=== PATIENT | male | born 1960 | race Caucasian/White ===

== ENCOUNTER 2018-09-08 12:20 | Emergency (ER) | payer OTHER ==
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
[2018-09-08] MEDS ORDERED: Sodium Chloride 0.9% 1,000 ML IV SCH ×2 (13:00→14:15)
[2018-09-08] MEDS ORDERED: Insulin Regular, Human 100 Units/ML 3 ML Vial SUBCUT ONE (13:22)
[2018-09-08] MEDS ORDERED: Magnesium Citrate Solution 296 ML Bottle PO ONE (13:36)
--- NOTE | 2018-09-08 13:51 | CR ---
Abdomen: Supine view of the abdomen was obtained. Comparison: No prior abdominal imaging. Calcifications seen within the pelvis compatible with phleboliths. Multiple surgical clips seen within the abdomen. Bowel gas pattern is normal. No soft tissue abnormality is seen. Anastomotic sutures are noted within the pelvis most likely from rectal surgery. Impression: 1. Findings as noted above. Nothing acute is appreciated on supine abdominal x-ray. Diagnostic code #2
[2018-09-08 13:56] LABS: HEMOGLOBIN A1C 9.4 % (4.50-6.20)
== END 2018-09-08 16:44 | disposition home or self-care (01) ==
LOC: JD.ED 12:20
DX: K59.01 Slow transit constipation (principal); E86.0 Dehydration; E11.65 Type 2 diabetes mellitus with hyperglycemia; Z79.899 Other long term (current) drug therapy; Z79.4 Long term (current) use of insulin
CPT/HCPCS: 36415; 74018; 80053; 81001; 82009; 82962; 83036; 83735; 83930; 85007; 85027; 96360; 96361; 96372; 99284; A9270; J1815; J7040

== ENCOUNTER 2018-09-11 09:27 | Emergency (ER) | payer OTHER ==
[2018-09-11] MEDS ORDERED: Sodium Chloride 0.9% 10 ML Syringe FLUSH PRN (09:50)
[2018-09-11] MEDS ORDERED: Ibuprofen 800 MG Tab PO ONE (09:59)
[2018-09-11] MEDS: Sodium Chloride 0.9% 1,000 ML IV SCH ×2 (10:06→12:45)
--- NOTE | 2018-09-11 10:32 | EDM.PDOC ---
ED HPI GENERAL MEDICAL PROBLEM - General Chief Complaint: Gastrointestinal Problem Stated Complaint: NWWDS FLUIDS Time Seen by Provider: 09/11/18 09:34 Source of Information: Reports: Patient, Family History Limitations: Reports: No Limitations - History of Present Illness INITIAL COMMENTS - FREE TEXT/NARRATIVE: 57 y/o male presents to ER with cc rectal pain, fever and a headache. He states he developed fever this morning 101.7 and his rectal pain has increased over the past 2 days. He reports the pain is a stabbing pain in the left rectum region. 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 He reports he had a hard B M yesterday that was small. He states he feels like he is dehydrated and needs fluid. He is type II diabetic. He states his sugars have been running in the high 200's. S/O reports he was upset and hurting last night and went to the bar and drank quit a bit. He states he has a non-productive cough that is getting worse. He states he "recently aspirated in the past month. " He has not taken anything for his fever or pain. He reports pain eases up when he lays on his side. He is accompanied by his significant other. [facility]. Onset: Today Onset Date: 09/11/18 Onset Time: 07:00 Duration: Getting Worse Location: Reports: Abdomen, Other (rectal area) Quality: Reports: Ache Severity: Mild Improves with: Reports: None Worsens with: Reports: Movement (bowel movement) Associated Symptoms: Reports: Cough, Fever/Chills, Headaches. Denies: Nausea/ Vomiting, Shortness of Breath Rectal Pain Score (Numeric/FACES): 6 - Related Data Allergies Allergy/AdvReac Type Severity Reaction Status Date / Time No Known Allergies Allergy Verified 09/11/18 09:38 Home Meds: Home Meds Amylase/Lipase/Protease [Mindy SEAMAN 24,000 Unit] 24,000 unit PO TID 09/08/18 [ History] Benzonatate 100 mg PO TID PRN 09/08/18 [History] Insulin Glarg,Human.Rec.Analog [Lantus Solostar] 300 units .XX DAILY #1 pen 06/28 [Rx] Insulin Glarg,Human.Rec.Analog [Lantus] 15 units SQ QAM 09/08/18 [History] Lisinopril/Hydrochlorothiazide [Lisinopril-HCTZ 10-12.5 MG] 1 tab PO DAILY 09/08 [History] Magnesium Oxide 420 mg PO BID 09/08/18 [History] Meloxicam 15 mg PO DAILY PRN 09/08/18 [History] Mesalamine [Canasa] 1,000 mg RECTAL BEDTIME 09/08/18 [History] Omeprazole 20 mg PO DAILY PRN 09/08/18 [History] Sildenafil Citrate [Sildenafil] 100 mg PO ONETIME PRN 09/08/18 [History] glipiZIDE [Glucotrol XL] 10 mg PO BID 09/08/18 [History] metFORMIN HCl [Metformin HCl] 750 mg PO DAILY 09/08/18 [History] Ciprofloxacin HCl [Cipro] 500 mg PO BID 7 Days #14 tablet 09/11/18 [Rx] metroNIDAZOLE [Flagyl] 500 mg PO Q8H 7 Days #21 tab 09/11/18 [Rx] Past Medical History Respiratory History: Reports: Pneumonia, Recurrent Gastrointestinal History: Reports: Other (See Below) Other Gastrointestinal History: ulcerative colitis Musculoskeletal History: Reports: Osteoarthritis Neurological History: Reports: Concussion Endocrine/Metabolic History: Reports: Diabetes, Type II - Past Surgical History HEENT Surgical History: Reports: Naso-Sinus Surgery, Oral Surgery Social & Family History - Tobacco Use Smoking Status *Q: Never Smoker - Caffeine Use Caffeine Use: Reports: Coffee - Alcohol Use Days Per Week of Alcohol Use: 3 Number of Drinks Per Day: 4 Total Drinks Per Week: 12 - Recreational Drug Use Recreational Drug Use: No - Living Situation & Occupation Living situation: Reports: Single Occupation: Employed ED ROS GENERAL - Review of Systems Review Of Systems: See Below Constitutional: Reports: Fever, Chills HEENT: Reports: No Symptoms Respiratory: Reports: Cough. Denies: Shortness of Breath Cardiovascular: Denies: Chest Pain Endocrine: Reports: Fatigue GI/Abdominal: Reports: Abdominal Pain, Constipation, Other (rectal pain) : Reports: No Symptoms Musculoskeletal: Reports: No Symptoms Skin: Reports: No Symptoms Neurological: Reports: Headache Psychiatric: Reports: Anxiety Hematologic/Lymphatic: Reports: No Symptoms Immunologic: Reports: No Symptoms ED EXAM, GI/ABD - Physical Exam Exam: See Below Exam Limited By: No Limitations General Appearance: Alert, WD/WN, No Apparent Distress Nose: Normal Inspection, Normal Mucosa, Other (oral mucosa dry, lips dry) Throat/Mouth: Normal Teeth, Normal Oropharynx, Normal Voice, No Airway Compromise, Other Head: Atraumatic, Normocephalic Neck: Normal Inspection, Supple, Non-Tender, Full Range of Motion Respiratory/Chest: No Respiratory Distress, No Accessory Muscle Use, Chest Non- Tender, Decreased Breath Sounds Cardiovascular: Normal Peripheral Pulses, No Edema, No Gallop, No JVD, No Murmur , No Rub, Tachycardia GI/Abdominal Exam: Soft, Non-Tender, No Organomegaly, No Distention, No Abnormal Bruit, No Mass, Pelvis Stable, Other (bowel sounds hyperactive) Back Exam: Normal Inspection, Full Range of Motion Neurological: Alert, Oriented, Normal Cognition, Normal Gait Psychiatric: Normal Affect, Normal Mood Skin Exam: Warm, Dry, Intact, Normal Color, No Rash Lymphatic: No Adenopathy Course - Vital Signs Last Recorded V/S: Last Vital Signs Temp 102 F H 09/11/18 10:06 Pulse 132 H 09/11/18 09:35 Resp 18 09/11/18 09:35 BP 155/86 H 09/11/18 09:35 Pulse Ox 94 L 09/11/18 09:35 - Orders/Labs/Meds Orders: Active Orders 24 hr Category Date Time Status Abdomen Pelvis w Cont [CT] Stat Exams 09/11/18 11:19 Taken Chest 2V [CR] Stat Exams 09/11/18 09:58 Taken KUB [Abdomen 1V Flat] [CR] Stat Exams 09/11/18 09:53 Taken CULTURE BLOOD [BC] Stat Lab 09/11/18 10:02 Received CULTURE BLOOD [BC] Stat Lab 09/11/18 10:19 Received Levofloxacin/Dextrose 5%-Water [Levaquin in D5W 750 MG/ Med 09/11/18 12:37 Active 150 ML] 750 mg Premix Bag 1 bag IV ONETIME Sodium Chloride 0.9% [Normal Saline] 1,000 ml Med 09/11/18 10:00 Active IV ASDIRECTED Sodium Chloride 0.9% [Normal Saline] 1,000 ml Med 09/11/18 12:45 Active IV ASDIRECTED Sodium Chloride 0.9% [Saline Flush] Med 09/11/18 09:50 Active 10 ml FLUSH ASDIRECTED PRN Blood Culture x2 Reflex Set [OM.PC] Stat Oth 09/11/18 09:59 Ordered Saline Lock Insert [OM.PC] Routine Oth 09/11/18 09:50 Ordered Medication Orders Sodium Chloride (Normal Saline) 1,000 mls @ 999 mls/hr IV ASDIRECTED DENICE Last Admin: 09/11/18 12:45 Dose: 999 mls/hr Infusion: 09/11/18 11:07 Dose: 999 mls/hr Admin: 09/11/18 10:06 Dose: 999 mls/hr Sodium Chloride (Normal Saline) 1,000 mls @ 125 mls/hr IV ASDIRECTED DENICE Levofloxacin/Dextrose 750 mg/ (Premix) 150 mls @ 100 mls/hr IV ONETIME ONE Stop: 09/11/18 14:06 Sodium Chloride (Saline Flush) 10 ml FLUSH ASDIRECTED PRN PRN Reason: Keep Vein Open Last Admin: 09/11/18 10:06 Dose: 10 ml Labs: Laboratory Tests 09/11/18 09/11/18 09/11/18 Range/Units 10:02 10:02 10:02 WBC 11.69 H (4.23-9.07) K/mm3 RBC 5.48 (4.63-6.08) M/mm3 Hgb 16.4 (13.7-17.5) gm/L Hct 45.5 (40.1-51.0) % MCV 83.0 (79.0-92.2) fl MCH 29.9 (25.7-32.2) pg MCHC 36.0 H (32.2-35.5) g/dl RDW Std Deviation 36.3 (35.1-43.9) fL Plt Count 199 (163-337) K/mm3 MPV 10.0 (9.4-12.3) fl Neut % (Auto) 93.3 H (34.0-67.9) % Lymph % (Auto) 2.3 L (21.8-53.1) % Mckenzie % (Auto) 3.4 L (5.3-12.2) % Eos % (Auto) 0.5 L (0.8-7.0) Baso % (Auto) 0.2 (0.1-1.2) % Neut # (Auto) 10.90 H (1.78-5.38) K/mm3 Lymph # (Auto) 0.27 L (1.32-3.57) K/mm3 Mckenzie # (Auto) 0.40 (0.30-0.82) K/mm3 Eos # (Auto) 0.06 (0.04-0.54) K/mm3 Baso # (Auto) 0.02 (0.01-0.08) K/mm3 Manual Slide Review Normal smear Sodium 134 L (136-145) mEq/L Potassium 4.0 (3.5-5.1) mEq/L Chloride 98 (98-107) mEq/L Carbon Dioxide 23 (21-32) mEq/L Anion Gap 17.0 H (5-15) BUN 21 H D (7-18) mg/dL Creatinine 1.2 (0.7-1.3) mg/dL Est Cr Clr Drug Dosing 73.65 mL/min Estimated GFR (MDRD) > 60 (>60) mL/min BUN/Creatinine Ratio 17.5 (14-18) Glucose 228 H (74-106) mg/dL POC Glucose (70-105) mg/dL Lactic Acid (0.4-2.0) mmol/L Calcium 9.3 (8.5-10.1) mg/dL Total Bilirubin 2.1 H (0.2-1.0) mg/dL AST 81 H (15-37) U/L ALT 114 H (16-63) U/L Alkaline Phosphatase 205 H (46-116) U/L Total Protein 7.0 (6.4-8.2) g/dl Albumin 3.4 (3.4-5.0) g/dl Globulin 3.6 gm/dL Albumin/Globulin Ratio 0.9 L (1-2) Lipase 261 (73-393) U/L Urine Color (Yellow) Urine Appearance (Clear) Urine pH (5.0-8.0) Ur Specific [place] (1.005-1.030) Urine Protein (Negative) Urine Glucose (UA) (Negative) Urine Ketones (Negative) Urine Occult Blood (Negative) Urine Nitrite (Negative) Urine Bilirubin (Negative) Urine Urobilinogen (0.2-1.0) Ur Leukocyte Esterase (Negative) Urine RBC (0-5) /hpf Urine WBC (0-5) /hpf Ur Squamous Epith Cells (0-5) /hpf Urine Bacteria (FEW) /hpf Urine Mucus (FEW) /hpf 09/11/18 09/11/18 09/11/18 Range/Units 10:09 10:19 11:30 WBC (4.23-9.07) K/mm3 RBC (4.63-6.08) M/mm3 Hgb (13.7-17.5) gm/L Hct (40.1-51.0) % MCV (79.0-92.2) fl MCH (25.7-32.2) pg MCHC (32.2-35.5) g/dl RDW Std Deviation (35.1-43.9) fL Plt Count (163-337) K/mm3 MPV (9.4-12.3) fl Neut % (Auto) (34.0-67.9) % Lymph % (Auto) (21.8-53.1) % Mckenzie % (Auto) (5.3-12.2) % Eos % (Auto) (0.8-7.0) Baso % (Auto) (0.1-1.2) % Neut # (Auto) (1.78-5.38) K/mm3 Lymph # (Auto) (1.32-3.57) K/mm3 Mckenzie # (Auto) (0.30-0.82) K/mm3 Eos # (Auto) (0.04-0.54) K/mm3 Baso # (Auto) (0.01-0.08) K/mm3 Manual Slide Review Sodium (136-145) mEq/L Potassium (3.5-5.1) mEq/L Chloride (98-107) mEq/L Carbon Dioxide (21-32) mEq/L Anion Gap (5-15) BUN (7-18) mg/dL Creatinine (0.7-1.3) mg/dL Est Cr Clr Drug Dosing mL/min Estimated GFR (MDRD) (>60) mL/min BUN/Creatinine Ratio (14-18) Glucose (74-106) mg/dL POC Glucose 214 H (70-105) mg/dL Lactic Acid 1.3 (0.4-2.0) mmol/L Calcium (8.5-10.1) mg/dL Total Bilirubin (0.2-1.0) mg/dL AST (15-37) U/L ALT (16-63) U/L Alkaline Phosphatase (46-116) U/L Total Protein (6.4-8.2) g/dl Albumin (3.4-5.0) g/dl Globulin gm/dL Albumin/Globulin Ratio (1-2) Lipase (73-393) U/L Urine Color Yellow (Yellow) Urine Appearance Clear (Clear) Urine pH 5.5 (5.0-8.0) Ur Specific [place] > or = 1.030 (1.005-1.030) Urine Protein 2+ H (Negative) Urine Glucose (UA) 3+ H (Negative) Urine Ketones 2+ H (Negative) Urine Occult Blood Negative (Negative) Urine Nitrite Negative (Negative) Urine Bilirubin Negative (Negative) Urine Urobilinogen 0.2 (0.2-1.0) Ur Leukocyte Esterase Negative (Negative) Urine RBC Not seen (0-5) /hpf Urine WBC Not seen (0-5) /hpf Ur Squamous Epith Cells 0-5 (0-5) /hpf Urine Bacteria Not seen (FEW) /hpf Urine Mucus Not seen (FEW) /hpf Meds: Medications Generic Name Dose Route Start Last Admin Trade Name Freq PRN Reason Stop Dose Admin Sodium Chloride 1,000 mls @ 999 mls/hr 09/11/18 10:00 09/11/18 12:45 Normal Saline IV 999 mls/hr ASDIRECTED DENICE Administration Sodium Chloride 1,000 mls @ 125 mls/hr 09/11/18 12:45 Normal Saline IV ASDIRECTED DENICE Levofloxacin/Dextrose 750 mg/ 150 mls @ 100 mls/hr 09/11/18 12:37 Premix IV 09/11/18 14:06 ONETIME ONE Sodium Chloride 10 ml 09/11/18 09:50 09/11/18 10:06 Saline Flush FLUSH 10 ml ASDIRECTED PRN Administration Keep Vein Open Discontinued Medications Generic Name Dose Route Start Last Admin Trade Name Freq PRN Reason Stop Dose Admin Diatrizoate Meglum/Diatrizoate Sod 90 ml 09/11/18 12:00 09/11/18 12:18 Gastrografin 37% PO 09/11/18 12:01 90 ml ONETIME ONE Administration Metronidazole 500 mg/ Premix 100 mls @ 100 mls/hr 09/11/18 12:35 09/11/18 12: 46 IV 09/11/18 13:34 100 mls/hr ONETIME ONE Administration Ibuprofen 800 mg 09/11/18 09:59 09/11/18 10:06 Motrin PO 09/11/18 10:00 800 mg ONETIME ONE Administration Iopamidol 100 ml 09/11/18 12:00 09/11/18 12:18 Isovue-370 (76%) IV 09/11/18 12:01 100 ml ONETIME ONE Administration - Re-Assessments/Exams Free Text/Narrative Re-Assessment/Exam: 09/11/18 11:13 WBC 11.69, RBC 5.48 H & H 16 4/45.5 NEUTROPHIL 93.3 LYMPH 0.27 NA+ 134 K+ 4.0 CHL 98 CO2 23 TOTAL AMADOU. 2.1 AST 81 ALT 114 LIPASE 261 BUN 21 CREATINE 1.2 GLUCOSE 228 ALK PHOS 205. His amadou , ast, alt are slightly elevated this may be due to alcohol he consumed last evening. His chest x-ray revealed no acute findings. His KUB revealed no acute findings. CT abdomen is pending. 09/11/18 12:10 Urinalysis + 2 protein + 3 glucose + 2 ketones. 09/11/18 13:30 57 y/o male presents to ER with cc fever, rectal and lower abdominal pain. His WBC was slightly elevated at 11.69. His CT revealed previous colectomy with ileorectal or ileoanal anastomosis. There is mild thickening of a loop of left lower quadrant small bowel, as well as the rectum. Mild regional enteritis and or proctitis would be considerations. The bowel appears otherwise unremarkable. There is no evidence for obstruction. He received 2 bolus NS, Flagyl, and Cipro and his condition improved. I will discharge home with Cipro and Flagyl. I instructed to follow up with his PCP. Instructed to return to the ER for any new or acute worsening symptoms. Patient verbalized understanding and is comfortable with plan for discharge. 09/11/18 13:33 Departure - Departure Time of Disposition: 13:46 Disposition: Home, Self-Care 01 Condition: Good Clinical Impression: Enteritis, Proctitis - Discharge Information Prescriptions: Ciprofloxacin HCl [Cipro] 500 mg PO BID 7 Days #14 tablet metroNIDAZOLE [Flagyl] 500 mg PO Q8H 7 Days #21 tab Referrals: PCP,None [Ordering Only Provider] - Forms: ED Department Discharge Additional Instructions: You have been diagnosis with enteritis and proctitis. Your WBC was elevated due to infection. The x-ray of your abdomen revealed no acute findings. Your CT of the abdomen revealed enteritis and proctitis. You have been given a RX for Cipro and Flagyl. Take this medication until it is all gone. Do not drink alcohol while taking this medication. You need to increase your fluid intake in order to maintain hydration. Follow up with your PCP. Return to the ER for any new or acute worsening symptoms[facility] Continue monitoring your glucose. - My Orders Last 24 Hours: My Active Orders 09/11/18 09:50 Sodium Chloride 0.9% [Saline Flush] 10 ml FLUSH ASDIRECTED PRN Saline Lock Insert [OM.PC] Routine 09/11/18 09:53 KUB [Abdomen 1V Flat] [CR] Stat 09/11/18 09:58 Chest 2V [CR] Stat 09/11/18 09:59 Blood Culture x2 Reflex Set [OM.PC] Stat 09/11/18 10:00 Sodium Chloride 0.9% [Normal Saline] 1,000 ml IV ASDIRECTED 09/11/18 10:02 CULTURE BLOOD [BC] Stat 09/11/18 10:19 CULTURE BLOOD [BC] Stat 09/11/18 11:19 Abdomen Pelvis w Cont [CT] Stat 09/11/18 12:37 Levofloxacin/Dextrose 5%-Water [Levaquin in D5W 750 MG/150 ML] 750 mg Premix Bag 1 bag IV ONETIME 09/11/18 12:45 Sodium Chloride 0.9% [Normal Saline] 1,000 ml IV ASDIRECTED - Assessment/Plan Last 24 Hours: My Active Orders 09/11/18 09:50 Sodium Chloride 0.9% [Saline Flush] 10 ml FLUSH ASDIRECTED PRN Saline Lock Insert [OM.PC] Routine 09/11/18 09:53 KUB [Abdomen 1V Flat] [CR] Stat 09/11/18 09:58 Chest 2V [CR] Stat 09/11/18 09:59 Blood Culture x2 Reflex Set [OM.PC] Stat 09/11/18 10:00 Sodium Chloride 0.9% [Normal Saline] 1,000 ml IV ASDIRECTED 09/11/18 10:02 CULTURE BLOOD [BC] Stat 09/11/18 10:19 CULTURE BLOOD [BC] Stat 09/11/18 11:19 Abdomen Pelvis w Cont [CT] Stat 09/11/18 12:37 Levofloxacin/Dextrose 5%-Water [Levaquin in D5W 750 MG/150 ML] 750 mg Premix Bag 1 bag IV ONETIME 09/11/18 12:45 Sodium Chloride 0.9% [Normal Saline] 1,000 ml IV ASDIRECTED
[2018-09-11] MEDS ORDERED: Iopamidol 755 Mg/ML 200 ML Bottle IV ONE (12:00)
[2018-09-11] MEDS ORDERED: Diatrizoate Meglumine/Diatrizoate Sodium 37% 120 ML Bottle PO ONE (12:00)
[2018-09-11] MEDS ORDERED: metroNIDAZOLE/Normal Saline 500 MG in Premix Bag 1 BAG IV ONE (12:35)
[2018-09-11] MEDS ORDERED: Levofloxacin/Dextrose 5%-Water 750 MG in Premix Bag 1 BAG IV ONE (12:37)
[2018-09-11] MEDS ORDERED: Sodium Chloride 0.9% 1,000 ML IV SCH (12:45)
--- NOTE | 2018-09-12 07:22 | CR ---
Abdomen: Supine view of the abdomen was obtained. Comparison: Prior abdominal x-ray of 09/08/18. Slightly prominent gas within loops of small bowel are seen within the right abdomen and left upper abdomen. Surgical clips are scattered within the abdomen. Calcifications likely representing phleboliths are seen within the abdomen. Bony structures appear within normal limits. Impression: 1. Slightly prominent gas within small bowel loops. This is shown to be of no significance on subsequent CT abdomen and pelvis exam. 2. Previous abdominal surgery. Other incidental findings. Diagnostic code #2
--- NOTE | 2018-09-12 07:22 | CR ---
Chest: Two views of the chest were obtained. Comparison: No prior chest x-ray is available. Heart size and mediastinum are normal. Lungs are clear. Bony structures appear within normal limits for the patient's age. Impression: 1. Nothing acute is appreciated on two-view chest x-ray. Diagnostic code #1
--- NOTE | 2018-09-12 07:25 | CT ---
CT abdomen and pelvis Technique: Multiple axial sections were obtained from above the dome of the diaphragm inferiorly through the pubic symphysis. Intravenous and oral contrast was utilized. Delayed images were obtained through the pelvis. Comparison: No prior abdominal pelvic CT study, previous abdominal x-ray performed earlier on the same day (10:23 AM) Findings: Visualized portions of the lung bases show nothing acute. Liver shows slight fatty infiltration without focal abnormality. Gallbladder contains no calcified gallstones. Spleen appears within normal limits. Adrenal glands show no nodule. Pancreas is within normal limits. Aorta shows atherosclerotic calcification which continues into the iliac vessels. No aneurysm is seen. No retroperitoneal adenopathy or mesenteric abnormalities are seen. Surgical clips scattered within the abdomen. Previous colectomy is noted. Slight bowel wall thickening is seen within the distal small bowel at the attachment of the rectum. Several loops of slightly prominent small bowel wall thickening is seen within distal ileal loops. No other bowel abnormality is seen. No pelvic mass or adenopathy is seen. No free fluid or inflammatory change is seen. Delayed images show slight amount of contrast within the bladder. Bladder wall is slightly thickened believed to be due to lack of distention. Bone window settings were reviewed which show severe disc space narrowing at L5-S1. Impression: 1. Slight bowel wall thickening suggested within the distal ileum at the anastomotic point to the rectum. Previous colectomy noted. Slight bowel wall thickening also noted within several other distal ileal loops. Mild inflammation is suggested. 2. Other incidental findings. Diagnostic code #3 I agree with preliminary report from [facility], finalized on 09/11/18, 2:22 PM PM Central Time
== END 2018-09-11 15:24 | disposition home or self-care (01) ==
LOC: JD.ED 09:27
DX: K52.9 Noninfective gastroenteritis and colitis, unspecified (principal); K62.89 Other specified diseases of anus and rectum; E11.9 Type 2 diabetes mellitus without complications; Z79.899 Other long term (current) drug therapy
CPT/HCPCS: 36415; 71046; 74018; 74177; 80053; 81001; 82962; 83605; 83690; 85025; 87040; 96361; 96365; 96367; 99284; A9270; J1956; J3490; J7040; Q9963; Q9967

== ENCOUNTER 2021-09-24 14:38 | Emergency (ER) | payer OTHER ==
[2021-09-24] MEDS ORDERED: Sodium Chloride 0.9% 10 ML Syringe FLUSH PRN (15:15)
== END 2021-09-24 17:15 | disposition home or self-care (01) ==
LOC: JD.ED 14:38
DX: R07.89 Other chest pain (principal); E11.9 Type 2 diabetes mellitus without complications; M19.90 Unspecified osteoarthritis, unspecified site; Z79.4 Long term (current) use of insulin; Z79.899 Other long term (current) drug therapy
CPT/HCPCS: 36415; 71045; 80053; 84484; 85025; 93005; 99285; J3490; 93010; 99283